=== PATIENT | female | born 1980 | race Two or more races ===

== ENCOUNTER 2024-03-09 21:48 | Inpatient (IN) | payer MEDICAID, SELFPAY ==
--- NOTE | ~2024-03-09 | CT_ITS ---
EXAMINATION: CT ABDOMEN AND PELVIS WITHOUT CONTRAST CLINICAL INFORMATION: Flank pain. Pyelonephritis. Rule out obstruction. COMPARISON: None available. TECHNIQUE: Multidetector volumetric imaging was performed from the superior aspect of the liver through the pubic symphysis. Sagittal and coronal reformatted images were obtained on the technologist's workstation. This CT examination was performed using dose optimization techniques as appropriate, variously including the following: *Automated exposure control *Adjustment of mA and/or kV according to patient size (this includes techniques or standardized protocols for targeted exams where dose is matched to indication/reason for exam; i.e. extremities or head) *Use of iterative reconstruction technique DLP: 452 mGy-cm FINDINGS: LUNG BASES: The visualized lung bases are unremarkable. LIVER, GALLBLADDER, AND BILIARY TREE: The liver is normal in size, shape, and attenuation. No focal hepatic lesion or biliary ductal dilatation is present. The gallbladder is unremarkable with no evidence of radiopaque gallstones, gallbladder wall thickening, or obvious pericholecystic inflammatory changes. PANCREAS: Unremarkable. SPLEEN: Unremarkable. ADRENAL GLANDS: Unremarkable. KIDNEYS AND URETERS: No hydronephrosis identified. No perinephric fluid collections. No ureterectasis. No ureteral calculi noted. Minimal reticulation of the fat adjacent to the left renal pelvis. Minimal reticulation of fat adjacent to the right renal pelvis. (Series 3 image 31, series 3 image 34, respectively). BLADDER: Unremarkable. GASTROINTESTINAL TRACT: Small number of sigmoid diverticula. No inflammatory changes of the sigmoid colon or sigmoid mesentery. Suture material noted in the region of the base of the cecum. The appendix is not visualized and may be surgically absent. No free intraperitoneal fluid or gas collections. No intestinal dilatation or mural thickening. Normal appearance of the stomach and duodenum. ABDOMINAL WALL: No significant hernia is appreciated. LYMPH NODES: Normal. VASCULAR: Unremarkable. PELVIC VISCERA: An 8 mm calcific density is noted in the region of the lower uterine segment (series 8 image 50). No adnexal lesions. OSSEOUS STRUCTURES: Unremarkable. CT/CT abdomen pelvis wo IV con IMPRESSION: *Borderline reticulation of the peripelvic fat of the left and right kidneys. These are borderline findings which may represent minimal inflammatory changes related to the given history of pyelonephritis. No hydronephrosis. No urolithiasis. No perinephric fluid collections. *Single benign-appearing 8 mm calcification associated with the lower uterine segment which may represent a degenerating uterine fibroid. *Mild sigmoid diverticulosis. No evidence of acute diverticulitis. Electronically signed by: Chandrakant Evans MD 03/10/2024 05:41 AM [facility]
[2024-03-09 22:10] VITALS: BP 125/82; PULSE 97; RESP 20; TEMP 36.8; O2SAT 98; BMI 24.8
[2024-03-09 23:00] LABS: MANUAL DIFF FLAG NO
[2024-03-09 23:04] LABS: Appearance Urine Cloudy; Color Urine Dark Yellow; Glucose Urine UA Negative (Negative); Leukocyte Esterase Urine Large (3+) (Negative); Nitrite Urine Positive (Negative); PH 5.5 (5.0-9.0); Specific Gravity - Urine 1.015 (1.005-1.025); UMIC TRIGGER UACC YES; Urine Blood Large (3+) (Negative); Urine Ketones Negative (Negative); Urine Protein 100 (2+) mg/dL (Neg-Trace)
[2024-03-09 23:05] LABS: Basophils Absolute Auto 0.1 X10*3/uL (0.0-0.2); Basophils Percent Auto 0.7 % (0-2); Eosinophils Absolute Auto 0.4 X10*3/uL (0.0-0.4); Eosinophils Percent Auto 2.6 % (0-4); Hematocrit 38.2 % (37.0-47.0); Hemoglobin 12.6 g/dl (12.0-16.0); Imm Gran Abs Auto 0.06 X10*3/uL (0.00-0.03); Imm Gran Pct Auto 0.4 % (0.0-0.4); Lymphocytes Absolute Auto 2.9 X10*3/uL (1.2-4.9); Lymphocytes Percent Auto 18.4 % (20-40); Mean Corpuscular Hemoglobin 29.4 pg (27.0-33.0); Mean Platelet Volume 9.6 fL (9.4-12.3); Monocytes Absolute Auto 0.9 X10*3/uL (0.1-1.2); Monocytes Percent Auto 5.8 % (2-11); Neutrophils Absolute Auto 11.3 x10*3/uL (2.0-8.3); Neutrophils Percent Auto 72.1 % (45-73); Platelet Count 462 X10*3/uL (160-400); Red Blood Count 4.29 X10*6/uL (4.20-5.50); Red Cell Distribution Width 13.1 % (11.0-16.0); White Blood Count 15.6 X10*3/uL (4.8-10.8)
[2024-03-09 23:13] LABS: Anion Gap 13 (12-20); Blood Urea Nitrogen 14 mg/dL (9-16); Calcium 8.3 mg/dL (8.4-10.2); Carbon Dioxide 25 mmol/L (22-29); Chloride 107 mmol/L (96-108); Creatinine Clr Calc Pharmacy 72.4; Estimated Glomerular Filt Rate > 60; Glucose Random 127 mg/dL (60-115); Potassium 3.9 mmol/L (3.3-5.1); Sodium 141 mmol/L (135-145)
[2024-03-09 23:14] LABS: Bacteria Urine None Seen (None Seen); Hyaline Casts Urine 0-2 /LPF (0-2); RBC Urine >20 /HPF (0-2); Squamous Epithelial Cell Urine 0-2 /HPF (0-2); UACC Culture Trigger YES; WBC Urine >50 /HPF (0-5)
--- NOTE | 2024-03-10 03:12 | ED.GENADULT ---
HPI - General Adult General Chief complaint: Back Pain/Injury Stated complaint: UTI? Time Seen by Provider: 03/10/24 03:12 Source: patient Mode of arrival: ambulatory Limitations: no limitations History of Present Illness ED Provider: DR. Marie HPI narrative: 44-year-old female came in for evaluation of bilateral flank pain for 3 days, patient also been having frequency urination with burning sensation while urination. , no fever, no chills. No history of kidney infection in the past, never had intra-abdominal surgery, no nausea, no vomiting., no diarrhea. No history of kidney stones in the past. No vaginal bleed or discharge. Related Data Allergies Allergy/AdvReac Type Severity Reaction Status Date / Time No Known Allergies Allergy Verified 03/09/24 22:11 Review of Systems Review of Systems: All other systems are reviewed and are negative Constitutional: Reports as per HPI and Reports no additional constitutional complaints Eyes: Reports as per HPI and Reports no additional eye complaints Reports system reviewed and no additional complaints, except as documented Cardiovascular: Reports as per HPI and Reports no additional cardiovascular complaints Respiratory: Reports as per HPI and Reports no additional respiratory complaints Gastrointestinal: Reports as per HPI and Reports no additional gastrointestinal complaints Genitourinary: Reports no additional female genitourinary complaints Musculoskeletal: Reports no additional musculoskeletal complaints Skin/Breast: Reports system reviewed and no additional complaints, except as docu Psychiatric: Reports no additional psychiatric complaints Endocrine: Reports no additional endocrine complaints Hematologic/Lymphatic: Reports no additional hematologic/lymphatic complaints Allergic/Immunologic: Reports no additional allergic/immunologic complaints Reports system reviewed and no additional complaints, except as documented and Reports Abnormal speech present [facility] Social History Social History Advance Directives: No Advance Directives Information Provided: No Physical Exam ED Vital Signs: Vital Signs - 24 hr 03/09/24 22:10 03/10/24 03:48 03/10/24 06:12 Temperature 98.3 F 98.2 F Pulse Rate 97 86 76 Respiratory Rate 20 16 16 Blood Pressure 125/82 118/76 100/61 Pulse Oximetry 98 96 94 Oxygen Delivery Method Room Air Room Air Room Air BMI result Body Mass Index 24.8 Vital signs have been reviewed and appear to be correct. Blood pressure elevated. Heart rate normal. Respiratory rate normal. Temperature normal. Oxygen saturation normal. Appearance: Alert. Oriented X3. No acute distress. Head: Normal external exam. Normocephalic. Atraumatic. No Mcdonald signs noted. No raccoon eyes noted Eyes: PERRLA. EOMI. Conjunctiva and sclera normal. Eyelids normal. ENT: TM's Normal. Pharynx normal. Uvula midline. Moist mucous membranes. No trismus noted. No drooling noted. No muffled voice noted. Neck: Normal inspection. Neck supple. FROM. No adenopathy. Thyroid Normal. No meningeal signs. No neck mass noted. CVS: Normal heart rate and rhythm. Heart sound normal. No murmurs noted. Pulses normal throughout. Respiratory: No respiratory distress. Painless inspiration. Breath sounds normal. No wheezes/rales/rhonchi noted. Chest nontender. No accessory muscle usage noted or decreased air movement noted. Abdomen: Soft and nontender. Bowel sounds normal in all 4 quadrants. No distention noted. No organomegaly noted. No visible injury noted. Back: Bilateral CVA tenderness. Full range of motion noted. Skin: Skin warm and dry. Normal skin color. Normal skin turgor. No rashes/lesions/lacerations noted. Extremities: No lower extremity edema. Extremities exhibit normal range of motion. Extremities nontender. Neuro: Oriented X 3. Cranial nerve exam: II-XII are grossly intact No motor deficit. No sensory deficit. Reflexes normal. Course Reevaluation(s) Reevaluation #1: 44-year-old female with with SIRS and bilateral flank pain consistent with pyelonephritis, no severe sepsis or septic shock. IV fluid/ceftriaxone admit to medical service. CT abdomen pelvis showed no ureteric obstruction. Time: 06:49 Medications Administered Discontinued Medications Generic Name Dose Route Start Last Admin Trade Name Freq PRN Reason Stop Dose Admin Ceftriaxone Sodium 1 gm 03/10/24 03:11 03/10/24 03:42 Ceftriaxone Sodium 1 Gm Vial IVPUSH 03/10/24 03:12 1 gm ONCE ONE Administration Ketorolac Tromethamine 15 mg 03/10/24 03:11 03/10/24 03:42 Ketorolac Tromethamine 15 Mg/Ml Vial IVPUSH 03/10/24 03:12 15 mg ONCE ONE Administration Medical Decision Making Differential Diagnosis Differential Diagnoses: The differential diagnosis associated with the presentation includes ( sepsis, septic shock, UTI, pyelonephritis, obstructive uropathy.) Admission/Observation Consideration of admission/observation: Escalation of care including admission/observation considered Consult Healthcare Provider Management of the patient was discussed with: Hospitalist ( Dr. Chaudhari) Lab Data MDM Lab Attestation statement: I reviewed the patient's lab results. 03/09/24 22:48 03/09/24 22:48 Labs: Lab Results 03/09/24 03/09/24 03/10/24 Range/Units 22:48 22:58 03:40 WBC 15.6 H (4.8-10.8) X10*3/uL RBC 4.29 (4.20-5.50) X10*6/uL Hgb 12.6 (12.0-16.0) g/dl Hct 38.2 (37.0-47.0) % MCV 89.0 (80.0-98.0) fL MCH 29.4 (27.0-33.0) pg MCHC 33.0 (31.0-35.0) g/dl RDW 13.1 (11.0-16.0) % Plt Count 462 H (160-400) X10*3/uL MPV 9.6 (9.4-12.3) fL Immature Gran % (Auto) 0.4 (0.0-0.4) % Neut % (Auto) 72.1 (45-73) % Lymph % (Auto) 18.4 L (20-40) % [place] % (Auto) 5.8 (2-11) % Eos % (Auto) 2.6 (0-4) % Baso % (Auto) 0.7 (0-2) % Lymph # (Auto) 2.9 (1.2-4.9) X10*3/uL [place] # (Auto) 0.9 (0.1-1.2) X10*3/uL Eos # (Auto) 0.4 (0.0-0.4) X10*3/uL Baso # (Auto) 0.1 (0.0-0.2) X10*3/uL Abs Immat Gran (auto) 0.06 H (0.00-0.03) X10*3/uL Absolute Neuts (auto) 11.3 H (2.0-8.3) x10*3/uL Absolute Nucleated RBC 0.000 (0.0-0.012) X10*3/uL Nucleated RBC % (auto) 0.0 (0.0-0.2) /100WBC Sodium 141 (135-145) mmol/L Potassium 3.9 (3.3-5.1) mmol/L Chloride 107 (96-108) mmol/L Carbon Dioxide 25 (22-29) mmol/L Anion Gap 13 (12-20) BUN 14 (9-16) mg/dL Creatinine 0.77 (0.5-1.4) mg/dL Estim Creat Clear Calc 72.4 Estimated GFR > 60 Random Glucose 127 H (60-115) mg/dL Lactic Acid 0.8 (0.5-2.0) mmol/L Calcium 8.3 L (8.4-10.2) mg/dL Urine Color Dark Yellow Urine Appearance Cloudy Urine pH 5.5 (5.0-9.0) Ur Specific [place] 1.015 (1.005-1.025) Urine Protein 100 (2+) H (Neg-Trace) mg/dL Urine Glucose (UA) Negative (Negative) mg/dL Urine Ketones Negative (Negative) mg/dL Urine Blood Large (3+) H (Negative) Urine Nitrite Positive H (Negative) Ur Leukocyte Esterase Large (3+) H (Negative) Urine RBC >20 H (0-2) /HPF Urine WBC >50 H (0-5) /HPF Ur Squamous Epith Cells 0-2 (0-2) /HPF Urine Bacteria None Seen (None Seen) Hyaline Casts 0-2 (0-2) /LPF Independent Interpretation I performed an independent interpretation of an: CT Scan ( abdomen and pelvis:*Borderline reticulation of the peripelvic fat of the left and right kidneys. These are borderline findings which may represent minimal inflammatory changes related to the given history of pyelonephritis. No hydronephrosis. No urolithiasis. No perinephric fluid collections. ) Radiology Impression Discussion of test interpretation with radiology: I have reviewed the radiologist's reading. Discharge Plan Discharge Clinical Impression: Pyelonephritis, SIRS (systemic inflammatory response syndrome) Patient Disposition: Admitted As Inpatient Print Language: Congolese
[2024-03-10] MEDS: Ketorolac Tromethamine 15 MG/ML VIAL IVPUSH (03:42)
[2024-03-10] MEDS: cefTRIAXone sodium 1 GM VIAL IVPUSH (03:42)
[2024-03-10 03:48] VITALS: BP 118/76; PULSE 86; RESP 16; TEMP 36.8; O2SAT 96
[2024-03-10 04:06] LABS: Lactic Acid 0.8 mmol/L (0.5-2.0)
[2024-03-10 06:12] VITALS: BP 100/61; PULSE 76; RESP 16; O2SAT 94
--- NOTE | 2024-03-10 08:30 | P.HPHOSP_ITS ---
History of Present Illness Date of Service: 03/10/24 Attending physician on admission: Regina Chaudhari Chief Complaint: bilateral flank pain, dysuria Patient is a 44-year-old female with a past medical history significant for possible pyelonephritis, who presented with bilateral flank pain, frequency and dysuria for the past 3 days. She denies any fever, chills, nausea or vomiting. She denies constipation or diarrhea. No history of kidney stones. Review of Systems 2 Constitutional: Constitutional: Denies chills, Denies fatigue, Denies fever(s) and Denies headache(s) Eyes: Eyes: Denies change in vision ENT: Denies headache(s), Denies nasal congestion, Denies nasal discharge and Denies sore throat Cardiovascular: Cardiovascular: Denies chest pain, Denies rapid heart rate, Denies lightheadedness and Denies dyspnea Respiratory: Respiratory: Denies chest congestion, Denies cough, Denies dyspnea and Denies wheezing Gastrointestinal: Gastrointestinal: Denies constipation, Denies diarrhea, Denies nausea and Denies vomiting Genitourinary: Genitourinary: Reports as per HPI Musculoskeletal: Musculoskeletal: Denies myalgias Integumentary/Breasts: Skin/Breast: Denies rash Neurologic: Denies confusion and Denies headache(s) Psychiatric: Psychiatric: Denies confusion Endocrine: Endocrine: Denies fatigue Hematologic/Lymphatic: Hematologic/Lymphatic: Denies easy bleeding Allergic/Immunologic: Allergic/Immunologic: Denies wheezing PMFSH Functional capacity: independent ambulation Social History Advance Directives: No Advance Directives Information Provided: No Narrative: smokes about 1/2 pk/day. no druge use. no etoh. , lives with . Meds Allergies Allergy/AdvReac Type Severity Reaction Status Date / Time No Known Allergies Allergy Verified 03/09/24 22:11 Active Medications: Current Medications Acetaminophen (Acetaminophen 325 Mg Tablet) 650 mg PO Q6H PRN PRN Reason: Pain, Mild (Pain Scale 1-3), fever or headache Calcium Carbonate (Calcium Carbonate 750 Mg Tab.Chew) 750 mg PO Q4H PRN PRN Reason: Heartburn Enoxaparin Sodium (Enoxaparin Sodium 40 Mg/0.4 Ml Syringe) 40 mg SUBCUT Q24H [facility] Ketorolac Tromethamine (Ketorolac Tromethamine 30 Mg/Ml Vial) 30 mg IVPUSH Q6H PRN PRN Reason: Pain, Moderate(Pain Scale 4-6) Stop: 03/15/24 08:23 Magnesium Hydroxide (Milk Of Magnesia 30 Ml Oral.Susp) 30 ml PO DAILY PRN PRN Reason: Constipation Melatonin (Melatonin 3 Mg Tablet) 6 mg PO BEDTIME PRN PRN Reason: Insomnia Ondansetron HCl (Ondansetron Hcl 4 Mg/2 Ml Vial) 4 mg IVPUSH Q8H PRN PRN Reason: Nausea and Vomiting Oxycodone HCl (Oxycodone Hcl Immed Release 5 Mg Tablet) 5 mg PO Q6H PRN PRN Reason: Pain, Severe (Pain Scale 7-10) Sodium Chloride (0.9 % Sodium Chloride Flush 3 Ml Syringe) 3 ml IVFLUSH QSHIFT [facility] Physical Exam 2 Vital Signs and Narrative: Vital Signs: Last Vital Signs Temp 98.2 F 03/10/24 03:48 Pulse 76 03/10/24 06:12 Resp 16 03/10/24 06:12 BP 100/61 03/10/24 06:12 Pulse Ox 94 03/10/24 06:12 O2 Del Method Room Air 03/10/24 06:12 BMI result Body Mass Index 24.8 General: AOx3, no acute distress Resp: CTA bilaterally CVS: S1, S2, RRR GI: +BS, NT, no distention. CVA tenderness bilaterally. Skin: Warm, dry Extremities: No edema Psych: Appropriate affect Const: General: No confusion Orientation/consciousness: No confusion Neuro: General: No confusion Results Labs 03/09/24 22:48 03/09/24 22:48 Labs: Laboratory Results - last 24 hr 03/09/24 03/09/24 03/10/24 22:48 22:58 03:40 MCV 89.0 MCH 29.4 MCHC 33.0 RDW 13.1 Plt Count 462 H MPV 9.6 Immature Gran % (Auto) 0.4 Neut % (Auto) 72.1 Lymph % (Auto) 18.4 L [place] % (Auto) 5.8 Eos % (Auto) 2.6 Baso % (Auto) 0.7 Lymph # (Auto) 2.9 [place] # (Auto) 0.9 Eos # (Auto) 0.4 Baso # (Auto) 0.1 Abs Immat Gran (auto) 0.06 H Absolute Neuts (auto) 11.3 H Absolute Nucleated RBC 0.000 Nucleated RBC % (auto) 0.0 Anion Gap 13 Estim Creat Clear Calc 72.4 Estimated GFR > 60 Random Glucose 127 H Lactic Acid 0.8 Calcium 8.3 L Urine Color Dark Yellow Urine Appearance Cloudy Urine pH 5.5 Ur Specific [place] 1.015 Urine Protein 100 (2+) H Urine Glucose (UA) Negative Urine Ketones Negative Urine Blood Large (3+) H Urine Nitrite Positive H Ur Leukocyte Esterase Large (3+) H Urine RBC >20 H Urine WBC >50 H Ur Squamous Epith Cells 0-2 Urine Bacteria None Seen Hyaline Casts 0-2 Imaging Radiologist's Impressions: Impressions Abdomen/Pelvis CT 03/10/24 04:16 IMPRESSION: *Borderline reticulation of the peripelvic fat of the left and right kidneys. These are borderline findings which may represent minimal inflammatory changes related to the given history of pyelonephritis. No hydronephrosis. No urolithiasis. No perinephric fluid collections. *Single benign-appearing 8 mm calcification associated with the lower uterine segment which may represent a degenerating uterine fibroid. *Mild sigmoid diverticulosis. No evidence of acute diverticulitis. Electronically signed by: Chandrakant Evans MD 03/10/2024 05:41 AM [facility] Assessment and Plan (1) Sepsis: Status: Acute (2) Pyelonephritis: Status: Acute (3) Tobacco abuse: Status: Acute Plan Patient is a 44-year-old female with a past medical history significant for possible pyelonephritis, who presented with bilateral flank pain, frequency and dysuria for the past 3 days. A/P CT with bilateral swelling of the kidneys, UA positive, culture pending. sepsis secondary to pyelonephritis - + leukocytosis, lactic acid normal, blood cultures x2 pending - UA +, cx pending - started on ceftriaxone in ED, will continue - tolerating PO and BMP normal, no IVF needed - monitor CBC and BMP tobacco use - 1/2 pk/day - declines nicotine patch - smoking cessation discussed full code VTE prophy: lovenox Patient with sepsis secondary to pyelonephritis, requiring admission for at least 2 midnights stay for IV antibiotics. Quality Stroke Does the patient have a stroke diagnosis?: No VTE Prior VTE?: No VTE Risk Level:: Medical - moderate - high VTE Device Contraindication: Treatment Not Indicated VTE Drug Contraindication: N/A - Med Ordered
[2024-03-10 08:46] VITALS: BP 108/79; PULSE 82; RESP 16; TEMP 36.6; O2SAT 96
[2024-03-10] MEDS: Ketorolac Tromethamine 30 MG/ML VIAL IVPUSH (08:50)
[2024-03-10] MEDS: Enoxaparin Sodium 40 MG/0.4 ML SYRINGE SUBCUT (08:50)
[2024-03-10 09:12] LABS: HCG Quantitative < 2 mIU/mL
--- NOTE | 2024-03-10 09:33 | PHA.MEDREC ---
Addendum entered by Alessandra Diehl RPh 03/10/24 10:40: Med rec was reviewed by [facility]. Original Note: Pharmacy Consult ? Medication Reconciliation Pharmacy has completed the medication reconciliation. Spoke to patient to confirm med list . patient states she is only taking Mirtazapine 15 mg and Hydroxyzine 25 mg ,however she hasn't taken in three weeks.
[2024-03-10 09:50] LABS: Beta-Hydroxybutyrate 0.03 mmol/L (0.02-0.27)
[2024-03-10] MEDS: oxyCODONE HCl Immed Release 5 MG TABLET PO ×2 (11:05→20:58)
[2024-03-10 11:12] VITALS: BP 107/62; PULSE 70; RESP 16; TEMP 36.4; O2SAT 95
--- NOTE | 2024-03-10 14:53 | MHC.CM.PN ---
PT REPORTS SHE LIVES WITH HER S/O AND IS INDEPENDENT WITH CARE SHE HAS NO DME AND NO SERVICES PT DECLINES TO COMPLETE A HCP PCP: IGOR MARINELLI DCP: HOME NO SERVICES TO TRANSPORT
[2024-03-10 16:00] VITALS: BP 98/63; PULSE 76; RESP 18; TEMP 36.6; O2SAT 97
[2024-03-10] MEDS: 0.9 % Sodium Chloride Flush 3 ML SYRINGE IVFLUSH ×2 (17:07→19:35)
[2024-03-10] MEDS: Acetaminophen 325 MG TABLET 650 MG PO (17:09)
[2024-03-10 19:46] VITALS: BP 101/62; PULSE 73; RESP 18; TEMP 36.2; O2SAT 97
--- NOTE | 2024-03-11 02:53 | PC.NURSE ---
pt c/o dizziness vss pt is drinking and eating md notified pt made high fall risk for now .
[2024-03-11 03:41] VITALS: BP 118/60; PULSE 77; RESP 18; TEMP 36.2; O2SAT 98
[2024-03-11] MEDS: cefTRIAXone sodium 1 GM VIAL IVPUSH (03:44)
[2024-03-11] MEDS: 0.9 % Sodium Chloride Flush 3 ML SYRINGE IVFLUSH ×2 (07:07→15:04)
[2024-03-11 07:53] LABS: MANUAL DIFF FLAG NO
[2024-03-11 08:00] VITALS: BP 110/59; PULSE 68; RESP 16; TEMP 36.4; O2SAT 97
[2024-03-11] MEDS: Enoxaparin Sodium 40 MG/0.4 ML SYRINGE SUBCUT (08:02)
[2024-03-11 08:08] LABS: Basophils Absolute Auto 0.1 X10*3/uL (0.0-0.2); Eosinophils Absolute Auto 0.4 X10*3/uL (0.0-0.4); Eosinophils Percent Auto 4.5 % (0-4); Hematocrit 33.7 % (37.0-47.0); Hemoglobin 10.9 g/dl (12.0-16.0); Imm Gran Abs Auto 0.03 X10*3/uL (0.00-0.03); Imm Gran Pct Auto 0.3 % (0.0-0.4); Lymphocytes Absolute Auto 3.4 X10*3/uL (1.2-4.9); Lymphocytes Percent Auto 37.3 % (20-40); Mean Corpuscular HGB Conc 32.3 g/dl (31.0-35.0); Mean Corpuscular Hemoglobin 29.2 pg (27.0-33.0); Mean Corpuscular Volume 90.3 fL (80.0-98.0); Mean Platelet Volume 10.1 fL (9.4-12.3); Monocytes Absolute Auto 0.5 X10*3/uL (0.1-1.2); Monocytes Percent Auto 5.8 % (2-11); Neutrophils Absolute Auto 4.7 x10*3/uL (2.0-8.3); Neutrophils Percent Auto 51.1 % (45-73); Platelet Count 392 X10*3/uL (160-400); Red Blood Count 3.73 X10*6/uL (4.20-5.50); Red Cell Distribution Width 12.9 % (11.0-16.0); White Blood Count 9.1 X10*3/uL (4.8-10.8)
[2024-03-11 08:23] LABS: Anion Gap 13 (12-20); Blood Urea Nitrogen 11 mg/dL (9-16); Calcium 8.5 mg/dL (8.4-10.2); Carbon Dioxide 25 mmol/L (22-29); Chloride 106 mmol/L (96-108); Creatinine Clr Calc Pharmacy 78.5; Estimated Glomerular Filt Rate > 60; Glucose Random 76 mg/dL (60-115); Sodium 140 mmol/L (135-145)
--- NOTE | 2024-03-11 09:05 | HO.PM.IMPN ---
Subjective Subjective Date of Service: 03/11/24 Interval History: bilateral flank pain; no hematuria; no fever This history was taken in [place] from the patient. Review of Systems Review of Systems: Yes all other systems are reviewed and are negative Physical Exam Vital Signs: Vital Signs: Last Vital Signs Temp 97.6 F 03/11/24 08:00 Pulse 68 03/11/24 08:00 Resp 16 03/11/24 08:00 BP 110/59 L 03/11/24 08:00 Pulse Ox 97 03/11/24 08:00 O2 Del Method Room Air 03/11/24 08:00 BMI result Body Mass Index 24.8 Gen: in no acute distress HEENT: sclera anicteric, moist mucus membranes Neck: supple Lungs: clear to auscultation bilaterally Heart: regular rate and rhythm, no murmurs Abd: soft, non-tender, non-distended : bilateral CVA tenderness Ext: no edema Skin: warm/well-perfused Neuro: alert and oriented x3, no focal findings Psych: appropriate affect Objective Data Active Medications Acetaminophen (Acetaminophen 325 Mg Tablet) 650 mg PO Q6H PRN PRN Reason: Pain, Mild (Pain Scale 1-3), fever or headache Last Admin: 03/10/24 17:09 Dose: 650 mg Documented By: SIMONE Calcium Carbonate (Calcium Carbonate 750 Mg Tab.Chew) 750 mg PO Q4H PRN PRN Reason: Heartburn Ceftriaxone Sodium (Ceftriaxone Sodium 1 Gm Vial) 1 gm IVPUSH Q24H [facility] Last Admin: 03/11/24 03:44 Dose: 1 gm Documented By: TAMY Enoxaparin Sodium (Enoxaparin Sodium 40 Mg/0.4 Ml Syringe) 40 mg SUBCUT Q24H [facility] Last Admin: 03/11/24 08:02 Dose: 40 mg Documented By: CHERELLE Hydroxyzine HCl (Hydroxyzine Hcl 25 Mg Tablet) 25 mg PO TID PRN PRN Reason: Anxiety Ketorolac Tromethamine (Ketorolac Tromethamine 30 Mg/Ml Vial) 15 mg IVPUSH Q6H PRN PRN Reason: Pain, Moderate(Pain Scale 4-6) Stop: 03/15/24 08:23 Magnesium Hydroxide (Milk Of Magnesia 30 Ml Oral.Susp) 30 ml PO DAILY PRN PRN Reason: Constipation Melatonin (Melatonin 3 Mg Tablet) 6 mg PO BEDTIME PRN PRN Reason: Insomnia Mirtazapine (Mirtazapine 15 Mg Tablet) 15 mg PO BEDTIME PRN PRN Reason: insomnia Ondansetron HCl (Ondansetron Hcl 4 Mg/2 Ml Vial) 4 mg IVPUSH Q8H PRN PRN Reason: Nausea and Vomiting Oxycodone HCl (Oxycodone Hcl Immed Release 5 Mg Tablet) 5 mg PO Q6H PRN PRN Reason: Pain, Severe (Pain Scale 7-10) Last Admin: 03/10/24 20:58 Dose: 5 mg Documented By: TAMY Sodium Chloride (0.9 % Sodium Chloride Flush 3 Ml Syringe) [facility] Last Admin: 03/11/24 07:07 Dose: 3 ml Documented By: CHERELLE Labs 03/11/24 06:53 03/11/24 06:53 Labs: Laboratory Results - last 24 hr 03/09/24 03/11/24 22:48 06:53 MCV 90.3 MCH 29.2 MCHC 32.3 RDW 12.9 Plt Count 392 MPV 10.1 Immature Gran % (Auto) 0.3 Neut % (Auto) 51.1 Lymph % (Auto) 37.3 [place] % (Auto) 5.8 Eos % (Auto) 4.5 H Baso % (Auto) 1.0 Lymph # (Auto) 3.4 [place] # (Auto) 0.5 Eos # (Auto) 0.4 Baso # (Auto) 0.1 Abs Immat Gran (auto) 0.03 Absolute Neuts (auto) 4.7 Absolute Nucleated RBC 0.000 Nucleated RBC % (auto) 0.0 Anion Gap 13 Estim Creat Clear Calc 78.5 Estimated GFR > 60 Random Glucose 76 Calcium 8.5 Beta-Hydroxybutyrate 0.03 Beta HCG, Quant < 2 Microbiology Microbiology Results: Microbiology 03/09/24 Unknown Urine Culture - Preliminary Urine clean catch - Clean Catch Midstream Staphylococcus species 03/10/24 03:40 Blood Culture - Preliminary Blood - Venous No growth after 24 hours. 03/10/24 03:40 Blood Culture - Preliminary Blood - Venous No growth after 24 hours. Assessment and Plan (1) Pyelonephritis: Status: Acute Plan d2 for 44yo F with no chronic medical conditions admitted for sepsis due to pyelonephritis - on ceftriaxone 03/10- - UCx growing Staphylococcus spp.; follow speciation and susceptibilities - BCx negative to date - sepsis physiology resolved VTE ppx - enoxaparin dispo - eventual home In my clinical judgment, the patient requires continued inpatient hospitalization for the following reasons: IV ABX Total time managing care of this patient today: 35 minutes. Quality Stroke Does the patient have a stroke diagnosis?: No VTE Prior VTE?: No VTE Risk Level:: Medical - moderate - high VTE Device Contraindication: Treatment Not Indicated VTE Drug Contraindication: N/A - Med Ordered
[2024-03-11 09:26] LABS: Estimated Average Glucose 103 mg/dL; Hemoglobin A1C 93.9811 umol/L; Hemoglobin A1c % 5.2 % (<6.0); Total Hemoglobin (HGBA1C) 2813.7333 umol/L
[2024-03-11] MEDS: Acetaminophen 325 MG TABLET 650 MG PO (13:53)
[2024-03-11 15:07] VITALS: BP 111/61; PULSE 74; RESP 20; TEMP 36.5; O2SAT 98
[2024-03-11 19:19] VITALS: BP 115/59; PULSE 80; RESP 20; TEMP 36.4; O2SAT 98
[2024-03-12] MEDS: 0.9 % Sodium Chloride Flush 3 ML SYRINGE IVFLUSH ×2 (00:30→08:51)
[2024-03-12] MEDS: cefTRIAXone sodium 1 GM VIAL IVPUSH (03:22)
[2024-03-12 03:48] VITALS: BP 105/68; PULSE 79; RESP 20; TEMP 36.2; O2SAT 98
[2024-03-12 08:00] VITALS: BP 109/71; PULSE 74; RESP 16; TEMP 36.1; O2SAT 97
[2024-03-12] MEDS: Enoxaparin Sodium 40 MG/0.4 ML SYRINGE SUBCUT (08:49)
--- NOTE | 2024-03-12 09:11 | PM.DS ---
DS: Providers Provider Date of Service: 03/12/24 Date of admission: 03/10/24 08:24 Date of discharge: 03/12/24 Primary care physician: JAMIE Tolbert DS: Diagnosis Discharge Diagnosis (1) Pyelonephritis: Status: Acute (2) Sepsis: Status: Acute (3) Tobacco abuse: Status: Acute DS: Summary Hospital Course Hospital Course: From the history and physical by the admitting hospitalist, JAMIE Vernon, 03/10/24: Patient is a 44-year-old female with a past medical history significant for possible pyelonephritis, who presented with bilateral flank pain, frequency and dysuria for the past 3 days. She denies any fever, chills, nausea or vomiting. She denies constipation or diarrhea. No history of kidney stones. 44yo F with no chronic medical conditions admitted for sepsis due to pyelonephritis treated with ceftriaxone IV with resolution of SIRS physiology. Blood cultures negative; urine culture grew Staphylococcus hominis susceptible to tetracyclines, TMP-SMX, clindamycin, and vancomycin; resistant to oxacillin. She recovered and was discharged home on 8 days of doxycycline with primary care follow-up. Smoking cessation counseled and NRT provided. Time Attestation Discharge Coordination Time (in mins): 40 Quality: Safe Use of Opioids Does Pt have an Active Cancer Diagnosis on the Problem List?: No Quality: Stroke Does the patient have a stroke diagnosis?: No Physical Exam Vital Signs: Vital Signs: Last Vital Signs Temp 96.9 F 03/12/24 08:00 Pulse 74 03/12/24 08:00 Resp 16 03/12/24 08:00 BP 109/71 03/12/24 08:00 Pulse Ox 97 03/12/24 08:00 O2 Del Method Room Air 03/12/24 08:00 BMI result Body Mass Index 24.8 Gen: in no acute distress HEENT: sclera anicteric, moist mucus membranes Neck: supple Lungs: clear to auscultation bilaterally Heart: regular rate and rhythm, no murmurs Abd: soft, non-tender, non-distended Ext: no edema Skin: warm/well-perfused Neuro: alert and oriented x3, no focal findings Psych: appropriate affect DS: Data Data Completed and Pending Completed studies during hospitalization [Text1]: Laboratory Results WBC 9.1 X10*3/uL (4.8-10.8) 03/11/24 06:53 RBC 3.73 X10*6/uL (4.20-5.50) L 03/11/24 06:53 Hgb 10.9 g/dl (12.0-16.0) L 03/11/24 06:53 Hct 33.7 % (37.0-47.0) L 03/11/24 06:53 MCV 90.3 fL (80.0-98.0) 03/11/24 06:53 MCH 29.2 pg (27.0-33.0) 03/11/24 06:53 MCHC 32.3 g/dl (31.0-35.0) 03/11/24 06:53 RDW 12.9 % (11.0-16.0) 03/11/24 06:53 Plt Count 392 X10*3/uL (160-400) 03/11/24 06:53 MPV 10.1 fL (9.4-12.3) 03/11/24 06:53 Immature Gran % (Auto) 0.3 % (0.0-0.4) 03/11/24 06:53 Neut % (Auto) 51.1 % (45-73) 03/11/24 06:53 Lymph % (Auto) 37.3 % (20-40) 03/11/24 06:53 Door % (Auto) 5.8 % (2-11) 03/11/24 06:53 Eos % (Auto) 4.5 % (0-4) H 03/11/24 06:53 Baso % (Auto) 1.0 % (0-2) 03/11/24 06:53 Lymph # (Auto) 3.4 X10*3/uL (1.2-4.9) 03/11/24 06:53 Door # (Auto) 0.5 X10*3/uL (0.1-1.2) 03/11/24 06:53 Eos # (Auto) 0.4 X10*3/uL (0.0-0.4) 03/11/24 06:53 Baso # (Auto) 0.1 X10*3/uL (0.0-0.2) 03/11/24 06:53 Abs Immat Gran (auto) 0.03 X10*3/uL (0.00-0.03) 03/11/24 06:53 Absolute Neuts (auto) 4.7 x10*3/uL (2.0-8.3) 03/11/24 06:53 Absolute Nucleated RBC 0.000 X10*3/uL (0.0-0.012) 03/11/24 06:53 Nucleated RBC % (auto) 0.0 /100WBC (0.0-0.2) 03/11/24 06:53 Sodium 140 mmol/L (135-145) 03/11/24 06:53 Potassium 4.0 mmol/L (3.3-5.1) 03/11/24 06:53 Chloride 106 mmol/L (96-108) 03/11/24 06:53 Carbon Dioxide 25 mmol/L (22-29) 03/11/24 06:53 Anion Gap 13 (12-20) 03/11/24 06:53 BUN 11 mg/dL (9-16) 03/11/24 06:53 Creatinine 0.71 mg/dL (0.5-1.4) 03/11/24 06:53 Estim Creat Clear Calc 78.5 03/11/24 06:53 Estimated GFR > 60 03/11/24 06:53 Random Glucose 76 mg/dL (60-115) 03/11/24 06:53 Estimat Average Glucose 103 mg/dL 03/11/24 06:53 Hemoglobin A1c % 5.2 % (<6.0) 03/11/24 06:53 Lactic Acid 0.8 mmol/L (0.5-2.0) 03/10/24 03:40 Calcium 8.5 mg/dL (8.4-10.2) 03/11/24 06:53 Beta-Hydroxybutyrate 0.03 mmol/L (0.02-0.27) 03/09/24 22:48 Beta HCG, Quant < 2 mIU/mL 03/09/24 22:48 Urine Color Dark Yellow 03/09/24 22:58 Urine Appearance Cloudy 03/09/24 22:58 Urine pH 5.5 (5.0-9.0) 03/09/24 22:58 Ur Specific [place] 1.015 (1.005-1.025) 03/09/24 22:58 Urine Protein 100 (2+) mg/dL (Neg-Trace) H 03/09/24 22:58 Urine Glucose (UA) Negative mg/dL (Negative) 03/09/24 22:58 Urine Ketones Negative mg/dL (Negative) 03/09/24 22:58 Urine Blood Large (3+) (Negative) H 03/09/24 22:58 Urine Nitrite Positive (Negative) H 03/09/24 22:58 Ur Leukocyte Esterase Large (3+) (Negative) H 03/09/24 22:58 Urine RBC >20 /HPF (0-2) H 03/09/24 22:58 Urine WBC >50 /HPF (0-5) H 03/09/24 22:58 Ur Squamous Epith Cells 0-2 /HPF (0-2) 03/09/24 22:58 Urine Bacteria None Seen (None Seen) 03/09/24 22:58 Hyaline Casts 0-2 /LPF (0-2) 03/09/24 22:58 Impressions Abdomen/Pelvis CT 03/10/24 04:16 IMPRESSION: *Borderline reticulation of the peripelvic fat of the left and right kidneys. These are borderline findings which may represent minimal inflammatory changes related to the given history of pyelonephritis. No hydronephrosis. No urolithiasis. No perinephric fluid collections. *Single benign-appearing 8 mm calcification associated with the lower uterine segment which may represent a degenerating uterine fibroid. *Mild sigmoid diverticulosis. No evidence of acute diverticulitis. Electronically signed by: Chandrakant Evans MD 03/10/2024 05:41 AM [facility] [place] [facility] 03/09/24 Unknown Urine clean catch - Clean Catch Midstream Urine Culture - Final Staphylococcus hominis [facility] 03/10/24 03:40 Blood - Venous Blood Culture - Preliminary No growth after 48 hours. 03/10/24 03:40 Blood - Venous Blood Culture - Preliminary No growth after 48 hours. Discharge Plan Discharge Anticipated Discharge Date/Time: 03/12/24 09:07 Patient Disposition: Home, Self-Care Discharge Diagnosis: sepsis due to pyelonephritis Referrals: Janene Alberts PA [Primary Care Provider] - 1 Week Discharge Medications: New doxycycline monohydrate 100 mg tablet 100 mg PO BID Qty: 16 0RF nicotine 14 mg/24 hr patch 24 hour 1 patch transdermal DAILY Qty: 28 0RF Continued mirtazapine 15 mg tablet 15 mg PO BEDTIME hydroxyzine pamoate 25 mg capsule 25 mg PO TID PRN (Reason: Anxiety) Discharge Orders: Discharge Order (Routine); Ordered 03/12/24 Ordered By: Regina Chaudhari Diet: Advance to usual diet Activity on Discharge: As tolerated Stand Alone Forms: Patient Portal Discharge page Print Language: Monegasque Care Plan Goals: recovery from infection Health Concerns: sepsis due to pyelonephritis Plan of Treatment: take antibiotic: doxycycline 100 mg twice daily for 8 days take acetaminophen [Tylenol] for pain drink plenty of fluids Please follow up with your primary care doctor within 1 week. Return to the hospital if you experience recurrent or worsening symptoms. Assessment: See Discharge Summary.
--- NOTE | 2024-03-12 09:26 | MHC.CM.PN ---
PT WILL DC HOME TODAY WITH NO SERVICES VIA PRIVATE TRANSPORT
== END 2024-03-12 09:41 | disposition home or self-care (01) | DRG 720 ==
LOC: HO.ED 03-10 06:54 → HO.EDOVER 03-10 08:33 → HO.S3 03-10 10:22
PROVIDERS: Admitting Provider Physician Assistant; Emergency Provider Emergency Medicine; PCP Physician Assistant; Visit Provider Family Medicine
DX: A41.9 Sepsis, unspecified organism (principal); N12 Tubulo-interstitial nephritis, not specified as acute or chronic; F17.210 Nicotine dependence, cigarettes, uncomplicated; Z71.6 Tobacco abuse counseling; B95.7 Other staphylococcus as the cause of diseases classified elsewhere; Z79.899 Other long term (current) drug therapy
CPT/HCPCS: 36415; 74176; 80048; 81001; 82010; 83036; 83605; 84702; 85025; 87040; 87086; 87088; 87186; 99285; J0696; J1650; J1885

== ENCOUNTER → 2024-03-10 08:24 | Outpatient (BNV) | payer MEDICAID, SELFPAY | PROVIDERS: Admitting Provider Physician Assistant; Emergency Provider Emergency Medicine; PCP Physician Assistant; Visit Provider Physician Assistant | DX: A41.9 Sepsis, unspecified organism (principal); N12 Tubulo-interstitial nephritis, not specified as acute or chronic; Z72.0 Tobacco use | CPT/HCPCS: 99223; 99232; 99239 ==